=== PATIENT | male | born 1935 | race Caucasian/White ===

== ENCOUNTER → 2024-05-15 | Outpatient (CLI) | payer MEDICARE ==
[2024-05-15 12:31] LABS: CREATININE 1.2 mg/dL (0.5-1.3); POTASSIUM 4.7 mmol/L (3.5-5.1)
== END | disposition home or self-care (01) ==
LOC: LAB 10:40
PROVIDERS: ATTEND Student in an Organized Health Care Education/Training Program
DX: I26.99 Other pulmonary embolism without acute cor pulmonale (principal)
CPT/HCPCS: 36415; 80048

== ENCOUNTER → 2024-05-24 | Outpatient (CLI) | payer MEDICARE ==
[~2024-05-24] MED LIST: IOHEXOL 350 MG/ML 100ML INFUS..BTL IV ONE
== END | disposition home or self-care (01) ==
LOC: RAH 08:24
PROVIDERS: ATTEND Student in an Organized Health Care Education/Training Program
DX: J98.11 Atelectasis (principal); K80.20 Calculus of gallbladder without cholecystitis without obstruction; I26.99 Other pulmonary embolism without acute cor pulmonale
CPT/HCPCS: 71270; Q9967